=== PATIENT | female | born 1985 | race Caucasian/White ===

== ENCOUNTER 2020-12-27 14:51 | Outpatient (REF) | payer MEDICARE, MEDICAID, SELFPAY ==
[2020-12-27 16:02] LABS: Appearance Urine CLEAR; Color Urine YELLOW; Glucose Urine UA NEG (NEG); Leukocyte Esterase Urine NEG (NEG); Nitrite Urine NEG (NEG); PH 6.5 (5.0-8.0); Specific Gravity - Urine <= 1.005 (1.005-1.025); Urine Blood NEG (NEG); Urine Ketones NEG (NEG); Urine Protein NEG (NEG-TRACE)
[2020-12-27 16:15] LABS: Bacteria Urine TRACE /LPF; Squamous Epithelial Cell Urine 1+ /LPF
[2020-12-27 16:16] LABS: RBC Urine 0-2 /HPF (0); WBC Urine 0-2 /HPF (0-4)
[2020-12-27 16:43] LABS: Anion Gap 11 (12-20); Blood Urea Nitrogen 7 mg/dL (9-16); Calcium 8.8 mg/dL (8.4-10.2); Carbon Dioxide 19 mmol/L (22-29); Chloride 114 mmol/L (96-108); Estimated Glomerular Filt Rate > 60; Sodium 140 mmol/L (135-145)
[2020-12-28 09:42] LABS: Human Growth Hormone 0.2 ng/mL (< OR = 7.1)
== END 2020-12-27 14:52 | disposition home or self-care (01) ==
LOC: HO.LAB 14:51
PROVIDERS: Visit Provider Internal Medicine Nephrology
DX: R30.0 Dysuria (principal); N23 Unspecified renal colic
CPT/HCPCS: 36415; 80051; 81001; 82310; 82565; 83003; 84520

== ENCOUNTER 2021-02-06 14:48 | Emergency (ER) | payer MEDICARE, MEDICAID, SELFPAY ==
[2021-02-06 15:04] VITALS: BP 125/75; PULSE 76; RESP 18; TEMP 36.8; O2SAT 99; BMI 33.6
[2021-02-06 16:33] VITALS: BP 110/75; PULSE 71; RESP 15; TEMP 36.8; O2SAT 98
[2021-02-06] MEDS: SUMAtriptan succinate 6 MG/0.5 ML VIAL SUBCUT (18:05)
--- NOTE | 2021-02-06 18:07 | ED.HA ---
HPI - Headache General Chief Complaint: Headache Stated Complaint: headache Time Seen by Provider: 02/06/21 16:36 Source: patient Mode of arrival: ambulatory Limitations: no limitations History of Present Illness HPI Narrative: Patient history of lupus, pseudotumor cerebri, migraine headaches comes here for 3-4 days of headache which is localized on the top of the head feels slightly different than migraine and pseudotumor cerebri has light sensitivity but no nausea no vomiting headache does not increase on standing or stooping. No vision changes no fever no chills Related Data Previous Rx's Medication Instructions Recorded jbrzgbvgxq-ozdbhtaexgots-xtvmlxpb 1 cap PO Q6H PRN #20 cap 02/06/21 50 mg-300 mg-40 mg capsule (Fioricet) Allergies Allergy/AdvReac Type Severity Reaction Status Date / Time levofloxacin [From LEVAQUIN] Allergy Mild WEAKNESS Verified 02/06/21 15:03 moxifloxacin [From AVELOX] Allergy Mild WEAKNESS Verified 02/06/21 15:03 amoxicillin [AMOXICILLIN] Allergy Unknown RASH Verified 02/06/21 15:03 methylprednisolone Allergy Unknown HIVES Verified 02/06/21 15:03 [From SOLU-MEDROL] sulfamethoxazole Allergy Unknown hives Verified 02/06/21 15:03 Review of Systems Review of Systems: Yes all other systems are reviewed and are negative PMFSH Past Medical History Medical History Intracranial hypertension Migraines SLE (systemic lupus erythematosus) Social History Social History Advance Directives: No Advance Directives Information Provided: Yes Patient : No Physical Exam Vital Signs: Vital Signs: Last Vital Signs Temp 98.3 F 02/06/21 16:33 Pulse 71 02/06/21 16:33 Resp 15 02/06/21 16:33 BP 110/75 02/06/21 16:33 Pulse Ox 98 02/06/21 16:33 Body Mass Index 33.6 Appearance: Alert. Oriented X3. No acute distress. Eyes: PERRLA, , fundus: No papilledema ENT: Pharynx normal. Oral Mucosa moist no temporal artery tenderness no sinus tenderness Neck: Normal inspection. Neck supple. CVS: Normal heart rate and rhythm. Pulses normal. Respiratory: No respiratory distress. Equal air entry bilateral, no wheezing/rales/rhonchi Abdomen: Soft and nontender. Bowel sounds are present, no mass palpable, no CVA tenderness Skin: Skin warm and dry. Normal skin color. Normal skin turgor. Extremities: No lower extremity edema. No calf tenderness Neuro: Oriented X 3. No motor deficit. No sensory deficit.No cerebellar signs , cranial nerves II-XII intact MDM - Headache MDM Narrative Medical decision making narrative: Patient with nonspecific headache likely migraine fundus exam negative no signs of papilledema at this time patient felt better after Imitrex will discharge patient home on Fioricet Discharge Plan Discharge Clinical Impression: Migraine Qualifiers: Migraine type: without aura Status migrainosus presence: without status migrainosus Intractability: not intractable Qualified Code(s): G43.009 - Migraine without aura, not intractable, without status migrainosus Patient Disposition: Home, Self-Care Instructions: Migraine Headache (ED) Additional Instructions: Rest at home Take medication for headache as advised and follow up with your PCP Prescriptions: New zplaudjqoh-vgexjpwydhnzu-zyav [Fioricet] 50-300-40 mg capsule 1 cap PO Q6H PRN (Reason: headache) Qty: 20 RF: 0 Interventions: ED Discharge Assessment Last Done: 02/06/21 19:13 Discharge Date/Time: 02/06/21 19:14
--- NOTE | 2021-02-06 18:39 | PC.NURSE ---
Pt alert and oriented, vss. pt reports having a headache for approximately 3-4 days. pt has a history of migraines and also has Lupus. pt denies dizziness/sob. no abdominal pain, no chest pain.
[2021-02-06] MEDS: Butalb/Acetamin/Caff 50/325/40 TABLET 1 TAB PO (19:09)
== END 2021-02-06 19:14 | disposition home or self-care (01) ==
PROVIDERS: Emergency Provider Internal Medicine; PCP Internal Medicine Nephrology
DX: G43.009 Migraine without aura, not intractable, without status migrainosus (principal)
CPT/HCPCS: 96372; 99284; J3030

== ENCOUNTER 2021-02-19 13:59 | Emergency (ER) | payer MEDICARE, MEDICAID, SELFPAY ==
[2021-02-19 14:09] VITALS: BP 119/86; BP 124/84; PULSE 64; PULSE 66; RESP 18; TEMP 36.7; O2SAT 98; BMI 31.3
--- NOTE | 2021-02-19 14:28 | ECG_ITS ---
Test Reason : anxiety Blood Pressure : / mmHG Vent. Rate : 067 BPM Atrial Rate : 067 BPM P-R Int : 160 ms QRS Dur : 090 ms QT Int : 394 ms P-R-T Axes : 060 045 048 degrees QTc Int : 416 ms Sinus rhythm with Premature supraventricular complexes Low voltage QRS Borderline ECG When compared with ECG of 13-MAY-2019 15:41, Premature supraventricular complexes are now Present Referred By: Abraham De Los Santos Electronically Signed By:MYNOR THOMAS MD
--- NOTE | 2021-02-19 14:29 | ED.GENADULT ---
HPI - General Adult General Chief complaint: Anxiety Stated complaint: L ARM TINGLING,CHEST TIGHTNESS,CRISIS Time Seen by Provider: 02/19/21 14:26 Source: patient Mode of arrival: ambulatory Limitations: no limitations History of Present Illness HPI narrative: This is a 35 years old female presented to the emergency department complaining of anxiety, left arm tingling, she is also states that she is homeless she has no place to go Onset (ago): day(s) (2) Radiation: non-radiation Severity: moderate Pain Consistency: constant Related Data Previous Rx's Medication Instructions Recorded djpicpnedc-dihrwryzshtmu-xygmvblf 1 cap PO Q6H PRN #20 cap 02/06/21 50 mg-300 mg-40 mg capsule (Fioricet) Allergies Allergy/AdvReac Type Severity Reaction Status Date / Time levofloxacin [From LEVAQUIN] Allergy Mild WEAKNESS Verified 02/06/21 15:03 moxifloxacin [From AVELOX] Allergy Mild WEAKNESS Verified 02/06/21 15:03 amoxicillin [AMOXICILLIN] Allergy Unknown RASH Verified 02/06/21 15:03 methylprednisolone Allergy Unknown HIVES Verified 02/06/21 15:03 [From SOLU-MEDROL] sulfamethoxazole Allergy Unknown hives Verified 02/06/21 15:03 Review of Systems Review of Systems: Yes all other systems are reviewed and are negative Constitutional: Constitutional: Reports no additional constitutional complaints Cardiovascular: Cardiovascular: Reports no additional cardiovascular complaints, Denies dyspnea and Denies dyspnea on exertion Respiratory: Respiratory: Denies pain with cough, Denies dyspnea and Denies dyspnea on exertion PMFSH Past Medical History Attestation statement: The following information was validated with the patient. Medical History Intracranial hypertension Migraines SLE (systemic lupus erythematosus) Social History Social History Advance Directives: No Advance Directives Information Provided: No Physical Exam Vital Signs: Vital Signs: Last Vital Signs Temp 98.1 F 02/19/21 14:09 Pulse 64 02/19/21 14:09 Resp 18 02/19/21 14:09 BP 124/84 02/19/21 14:09 Pulse Ox 98 02/19/21 14:09 Body Mass Index 31.3 Const: General: cooperative, healthy appearing, comfortable, no acute distress, well developed and alert Nutritional Appearance: well nourished Orientation/consciousness: patient oriented x3 HENMT: Head: Yes normal to inspection Face and sinus: Yes normal facial exam Mouth: Normal oral and palatal mucosa present Neck: Neck: Yes normal visual inspection, Yes full ROM and Yes no lymphadenopathy Thyroid: Thyroid normal Chest: Chest palpation & inspection: normal inspection of the chest and normal palpation of entire chest wall Resp: Effort & Inspection: normal respiratory effort and able to speak in complete sentences Auscultation: clear to auscultation bilaterally Cardio: Jugular venous distension: no JVD Rate: regular rate Rhythm: regular rhythm GI: Inspection: Yes normal to inspection Palpation (GI): not firm, nontender, no guarding and not rigid Percussion: Yes normal to percussion Auscultation: normal bowel sounds Neuro: General: patient oriented x3 Course Reevaluation(s) Reevaluation #1: EKG wnl will consult crisis Reevaluation #2: seen by Care team pt will be d/c to the iving room ,she is not SI Medical Decision Making Lab Data Labs: Lab Results 02/19/21 02/19/21 02/19/21 Range/Units 15:22 15:22 15:22 Urine Color YELLOW Urine Appearance CLEAR Urine pH 6.5 (5.0-8.0) Ur Specific [place] 1.010 (1.005-1.025) Urine Protein NEG (NEG-TRACE) MG/DL Urine Glucose (UA) NEG (NEG) MG/DL Urine Ketones NEG (NEG) MG/DL Urine Blood NEG (NEG) Urine Nitrite NEG (NEG) Ur Leukocyte Esterase NEG (NEG) Urine RBC 0-2 (0) /HPF Urine WBC 0-2 (0-4) /HPF Ur Squamous Epith Cells TRACE /LPF Urine Bacteria NONE /LPF Urine Test NEGATIVE (NEGATIVE) Urine Opiates Screen Not Detected (Not Detect) Urine Fentanyl Screen Not Detected (Not Detect) Ur Barbiturates Screen Not Detected (Not Detect) Ur Phencyclidine Scrn Not Detected (Not Detect) Ur Amphetamines Screen Not Detected (Not Detect) U Benzodiazepines Scrn Not Detected (Not Detect) Urine Cocaine Screen Not Detected (Not Detect) U Marijuana (THC) Screen Not Detected (Not Detect) COVID-19 (CRISTIAN) (Negative) COVID-19 Clin Com 02/19/21 Range/Units 16:07 Urine Color Urine Appearance Urine pH (5.0-8.0) Ur Specific [place] (1.005-1.025) Urine Protein (NEG-TRACE) MG/DL Urine Glucose (UA) (NEG) MG/DL Urine Ketones (NEG) MG/DL Urine Blood (NEG) Urine Nitrite (NEG) Ur Leukocyte Esterase (NEG) Urine RBC (0) /HPF Urine WBC (0-4) /HPF Ur Squamous Epith Cells /LPF Urine Bacteria /LPF Urine Test (NEGATIVE) Urine Opiates Screen (Not Detect) Urine Fentanyl Screen (Not Detect) Ur Barbiturates Screen (Not Detect) Ur Phencyclidine Scrn (Not Detect) Ur Amphetamines Screen (Not Detect) U Benzodiazepines Scrn (Not Detect) Urine Cocaine Screen (Not Detect) U Marijuana (THC) Screen (Not Detect) COVID-19 (CRISTIAN) Negative (Negative) COVID-19 Clin Com See Note ECG Data Attestation: I personally reviewed and interpreted this ECG as follows: Prior ECG tracings: available for review Pacemaker model: NSR 67 no ischemic changes Discharge Plan Discharge Clinical Impression: Acute anxiety Patient Disposition: Home, Self-Care Instructions: Anxiety (ED) Prescriptions: No Action kedohlcapi-udubfkycyhvmv-csfv [Fioricet] 50-300-40 mg capsule 1 cap PO Q6H PRN (Reason: headache) Qty: 20 RF: 0 Referrals: Physician,None [Primary Care Provider] - 2 days
[2021-02-19 15:29] LABS: Appearance Urine CLEAR; Color Urine YELLOW; Glucose Urine UA NEG (NEG); Leukocyte Esterase Urine NEG (NEG); Nitrite Urine NEG (NEG); PH 6.5 (5.0-8.0); Urine Blood NEG (NEG); Urine Ketones NEG (NEG); Urine Protein NEG (NEG-TRACE)
[2021-02-19 15:32] LABS: UPreg QC Valid YES; Urine Pregnancy NEGATIVE (NEGATIVE)
[2021-02-19 15:37] LABS: RBC Urine 0-2 /HPF (0); Squamous Epithelial Cell Urine TRACE /LPF; WBC Urine 0-2 /HPF (0-4)
[2021-02-19 15:43] LABS: Amphetamine Screen Urine Not Detected (Not Detect); Barbiturates, Urine Not Detected (Not Detect); Benzodiazepines Screen Urine Not Detected (Not Detect); Cannabinoid Screen Urine Not Detected (Not Detect); Cocaine Screen Urine Not Detected (Not Detect); Fentanyl, urine Not Detected (Not Detect); Opiate Screen Urine Not Detected (Not Detect); Phencyclidine Screen Urine Not Detected (Not Detect)
[2021-02-19 16:30] LABS: COVID-19 Test Negative (Negative); IDNOW Serial# 08D9AD1C
--- NOTE | 2021-02-19 19:07 | MHC.CARE ---
CARE Team was consulted to meet with pt to screen pt for [facility] evaluation. Pt is alert and oriented x4. Pt is sitting on her bed in the pod, dressed in hospital attire. Pt is engaged and help seeking. Eye contact is intermittent. Speech is within normal limits. Mood is anxious with congruent affect. Pt denies AVH and does not appear to be responding to internal stimuli. Pt denies SI/HI/. Insight, judgment, impulse control are intact. Pt reports that she had been living with her mom until two days ago when her mom said that she could not stay with her anymore due to lease requirement. Pt requested resources to help her find stable housing. CARE Team spoke with [facility] and was informed that pt could come to stay at the Living Room overnight and that they would connect her with housing resources. Pt agreed to go to the Living Room via Lyft and was given the contact information for CARE Team. Plan is for pt to go to [facility] via Lyft so she can be connected with housing resources.
== END 2021-02-19 19:21 | disposition home or self-care (01) ==
PROVIDERS: Emergency Medicine; Emergency Provider Emergency Medicine
DX: F41.9 Anxiety disorder, unspecified (principal); Z20.822 Contact with and (suspected) exposure to COVID-19; Z59.02 Unsheltered homelessness
CPT/HCPCS: 36415; 80307; 81001; 81025; 87635; 93005; 99283; 99284

== ENCOUNTER 2021-03-21 14:00 | Emergency (ER) | payer MEDICARE, MEDICAID, SELFPAY ==
--- NOTE | 2021-03-21 14:03 | PC.NURSE ---
Addendum entered by Brien Gambino 03/21/21 14:09: PATIENT'S MOTHER FANNY PARIS [phone] Original Note: PATIENT'S MOTHER CALLS AT THIS TIME TO INFORM THAT SHE REQUESTS THE PATIENT GETS A PSYCH EVALUATION. SHE STATES THAT SHE IS AFRAID OF THE PATIENT AND THAT THEY HAVE A HISTORY OF MANIPULATION AND OTHER PSYCH BEHAVIORS.
[2021-03-21 14:42] VITALS: BP 138/57; PULSE 76; RESP 16; TEMP 36.6; O2SAT 98; BMI 31.3
[2021-03-21 15:14] LABS: Appearance Urine CLEAR; Color Urine YELLOW; Glucose Urine UA NEG (NEG); Leukocyte Esterase Urine NEG (NEG); Nitrite Urine NEG (NEG); Specific Gravity - Urine >= 1.030 (1.005-1.025); Urine Blood NEG (NEG); Urine Ketones NEG (NEG); Urine Protein NEG (NEG-TRACE)
[2021-03-21 15:23] LABS: Mucus Urine TRACE /LPF; Squamous Epithelial Cell Urine TRACE /LPF
[2021-03-21 15:24] LABS: Bacteria Urine TRACE /LPF; RBC Urine 0 /HPF (0); WBC Urine 0 /HPF (0-4)
[2021-03-21 17:49] LABS: IDNOW Serial# 9DD0AD1C
[2021-03-21 17:50] LABS: COVID-19 Test Negative (Negative)
--- NOTE | 2021-03-21 17:57 | ED_ITS ---
HPI - General Adult General Chief complaint: General Medical Stated complaint: BACK PAIN Time Seen by Provider: 03/21/21 17:21 Source: patient Mode of arrival: ambulatory Limitations: no limitations History of Present Illness HPI narrative: 35-year-old female with history of lupus, CKD II, anxiety presents to the ER with upper respiratory symptoms, low back pain and difficulty voiding. She also has headaches and body aches. She is fully vaccinated for COVID-19. She was recently tested for COVID and was negative. Her doctor recently gave her prescription for Z-Ramon for her productive cough with yellow phlegm. She has 1 more day of this left. She has ongoing cough although the phlegm has decreased. She reports increased nasal congestion difficulty breathing at night due to her nose being clogged. She has had no fever or chills. She has no shortness of breath or dyspnea on exertion but feels like she ?needs more oxygen. MD complaint: Nasal congestion, low back pain Onset (ago): day(s) (4) Location: head, face, chest and back Radiation: non-radiation Severity: moderate Quality: aching Pain Consistency: constant Relieving factors: medication Exacerbating factors: movement Associated symptoms: cough, headaches and malaise Treatments prior to arrival: none Related Data Previous Rx's Medication Instructions Recorded gaszspjvml-larkfiubkwqlk-oclkyvhe 1 cap PO Q6H PRN #20 cap 02/06/21 50 mg-300 mg-40 mg capsule (Fioricet) doxycycline monohydrate 100 mg 100 mg PO BID #20 cap 03/21/21 capsule fluticasone propionate 50 1 spray INTRANASAL BID #16 g 03/21/21 mcg/actuation nasal spray,suspension (Flonase Allergy Relief) Allergies Allergy/AdvReac Type Severity Reaction Status Date / Time levofloxacin [From LEVAQUIN] Allergy Mild WEAKNESS Verified 02/06/21 15:03 moxifloxacin [From AVELOX] Allergy Mild WEAKNESS Verified 02/06/21 15:03 amoxicillin [AMOXICILLIN] Allergy Unknown RASH Verified 02/06/21 15:03 methylprednisolone Allergy Unknown HIVES Verified 02/06/21 15:03 [From SOLU-MEDROL] sulfamethoxazole Allergy Unknown hives Verified 02/06/21 15:03 Review of Systems Review of Systems: Constitutional: No Fever, No Chills ENT/Mouth: No sore throat, No Rhinorrhea, No Swallowing Difficulty, +Nasal congestion Cardiovascular: No Chest Pain, No SOB, No Orthopnea, No Edema Respiratory: + Cough, + Sputum, No Wheezing, No dyspnea Gastrointestinal: No Nausea, No Vomiting, No Diarrhea, No abdominal Pain Genitourinary: No Dysuria, No Urinary Frequency, No Hematuria Musculoskeletal: No joint pain, + Myalgias Skin: No Skin Lesions, No rash Neuro: No Dizziness, + Headache Psych: + Anxiety/Panic, Heme/Lymph: No Lymphadenopathy PMFSH Past Medical History Medical History Intracranial hypertension Migraines SLE (systemic lupus erythematosus) Social History Social History Advance Directives: No Advance Directives Information Provided: Yes Patient : No Physical Exam Vital Signs: Vital Signs: Last Vital Signs Temp 98 F 03/21/21 14:42 Pulse 76 03/21/21 14:42 Resp 16 03/21/21 14:42 BP 138/57 L 03/21/21 14:42 Pulse Ox 98 03/21/21 14:42 BMI result Body Mass Index 31.3 Appearance: Alert. Oriented X3. No acute distress. Eyes: Pupils equal, round and reactive to light. ENT: Pharynx normal. Tonsils are normal without swelling or exudate. nasal discharge is yellow with erythematous and swollen turbinates Neck: Normal inspection. Neck supple. CVS: Normal heart rate and rhythm. Pulses normal. Respiratory: No respiratory distress. Breath sounds normal. Abdomen: Soft and nontender No CVA tenderness, obese. +BS x4 Skin: Skin warm and dry. Normal skin color. Normal skin turgor. No rashes. Extremities: No lower extremity edema. Neuro: Oriented X 3. Grossly normal, nonfocal Course Course Course Narrative: 35-year-old female with history of SLE, CKD 2, anxiety who presents to the ER with nasal congestion, productive cough, low back pain. Her urinalysis is negative for infection, no protein. Her lungs are clear with normal oxygen levels. She has no respiratory distress. She is negative for COVID-19. She is about to complete a course of azithromycin. Given her nasal congestion and concern for possible bronchitis or sinusitis, will add a course of doxycycline for treatment. Will give intranasal steroid as well. She will follow-up with her primary care doctor early next week. She is stable for discharge home with supportive care in the above treatment. Patient agrees with plan. Medical Decision Making Lab Data Labs: Lab Results 03/21/21 03/21/21 Range/Units 15:03 17:27 Urine Color YELLOW Urine Appearance CLEAR Urine pH 6.0 (5.0-8.0) Ur Specific [place] >= 1.030 H (1.005-1.025) Urine Protein NEG (NEG-TRACE) MG/DL Urine Glucose (UA) NEG (NEG) MG/DL Urine Ketones NEG (NEG) MG/DL Urine Blood NEG (NEG) Urine Nitrite NEG (NEG) Ur Leukocyte Esterase NEG (NEG) Urine RBC 0 (0) /HPF Urine WBC 0 (0-4) /HPF Ur Squamous Epith Cells TRACE /LPF Urine Bacteria TRACE /LPF Urine Mucus TRACE /LPF COVID-19 (CRISTIAN) Negative (Negative) COVID-19 Clin Com See Note Critical Care Time Critical Care Time Critical Care Time: No Discharge Plan Discharge Clinical Impression: Bronchitis Patient Disposition: Home, Self-Care Instructions: Acute Bronchitis (ED) Additional Instructions: Your urine test showed no signs of infection You were negative for COVID-19 Complete your last dose of azithromycin. In addition start taking doxycycline which is another antibiotic to help treat possible sinusitis and bronchitis. Also use the prescribed intranasal steroid to help with congestion. Recommend ibxr-wtp-nacofyl Mucinex to help break up any phlegm. Increase her oral hydration, make sure to drink plenty of water. Follow-up with your doctor early next week. If you develop new or worsening symptoms call 911 or come back to the ER for further evaluation. Prescriptions: New doxycycline monohydrate 100 mg capsule 100 mg PO BID Qty: 20 RF: 0 fluticasone propionate [Flonase Allergy Relief] 50 mcg/actuation spray,suspension 1 spray intranasal BID Qty: 16 RF: 0 No Action llahppeigg-jpmmkutkfcfnm-cezo [Fioricet] 50-300-40 mg capsule 1 cap PO Q6H PRN (Reason: headache) Qty: 20 RF: 0
== END 2021-03-21 18:47 | disposition home or self-care (01) ==
PROVIDERS: Physician Assistant; Emergency Provider Emergency Medicine Emergency Medical Services; PCP Internal Medicine Nephrology
DX: J40 Bronchitis, not specified as acute or chronic (principal); R51.9 Headache, unspecified; M79.10 Myalgia, unspecified site; R05.9 Cough, unspecified; Z20.822 Contact with and (suspected) exposure to COVID-19; Z79.899 Other long term (current) drug therapy
CPT/HCPCS: 36415; 81001; 87635; 99283; 99284

== ENCOUNTER 2021-09-02 14:10 | Emergency (ER) | payer OTHER, MEDICAID, SELFPAY ==
--- NOTE | 2021-09-02 14:13 | ECG_ITS ---
Test Reason : CHEST PAIN Blood Pressure : / mmHG Vent. Rate : 095 BPM Atrial Rate : 095 BPM P-R Int : 158 ms QRS Dur : 086 ms QT Int : 342 ms P-R-T Axes : 057 013 034 degrees QTc Int : 429 ms Normal sinus rhythm Normal ECG When compared with ECG of 19-FEB-2021 14:36, Premature supraventricular complexes are no longer Present Referred By: Generic ED Physician Electronically Signed By:Luis E Mast
[2021-09-02 15:07] VITALS: BP 140/99; PULSE 100; RESP 18; TEMP 36.9; O2SAT 98; BMI 53.6
[2021-09-02 15:23] LABS: MANUAL DIFF FLAG NO
[2021-09-02 15:24] LABS: Basophils Absolute Auto 0.1 X10*3/uL (0.0-0.2); Basophils Percent Auto 0.7 % (0-2); Eosinophils Absolute Auto 0.2 X10*3/uL (0.0-0.4); Eosinophils Percent Auto 1.5 % (0-4); Hematocrit 41.3 % (37.0-47.0); Hemoglobin 13.4 g/dl (12.0-16.0); Imm Gran Abs Auto 0.04 X10*3/uL (0.00-0.03); Imm Gran Pct Auto 0.4 % (0.0-0.4); Lymphocytes Percent Auto 9.6 % (20-40); Mean Corpuscular HGB Conc 32.4 g/dl (31.0-35.0); Mean Corpuscular Volume 86.2 fL (80.0-98.0); Mean Platelet Volume 8.7 fL (9.4-12.3); Monocytes Absolute Auto 1.1 X10*3/uL (0.1-1.2); Neutrophils Absolute Auto 8.1 x10*3/uL (2.0-8.3); Neutrophils Percent Auto 77.8 % (45-73); Platelet Count 258 X10*3/uL (160-400); Red Blood Count 4.79 X10*6/uL (4.20-5.50); Red Cell Distribution Width 12.9 % (11.0-16.0); White Blood Count 10.5 X10*3/uL (4.8-10.8)
[2021-09-02 15:39] LABS: Anion Gap 10 (12-20); Blood Urea Nitrogen 11 mg/dL (9-16); Calcium 9.4 mg/dL (8.4-10.2); Carbon Dioxide 26 mmol/L (22-29); Chloride 108 mmol/L (96-108); Creatinine Clr Calc Pharmacy 108.5; Estimated Glomerular Filt Rate 55; Glucose Random 77 mg/dL (60-115); Potassium 4.4 mmol/L (3.3-5.1); Sodium 140 mmol/L (135-145)
[2021-09-02 15:46] LABS: Troponin-I High Sensitivity < 3.5 ng/L (<3.5-17.0)
== END 2021-09-02 17:32 | disposition left against medical advice (07) ==
PROVIDERS: Emergency Provider Emergency Medicine; PCP Nurse Practitioner Adult Health
DX: R07.9 Chest pain, unspecified (principal); R06.02 Shortness of breath; M79.89 Other specified soft tissue disorders
CPT/HCPCS: 36415; 80048; 84484; 85025; 93005; 99281; 99283

== ENCOUNTER → 2022-04-01 14:05 | Outpatient (BNVA) | payer OTHER, SELFPAY | PROVIDERS: PCP Nurse Practitioner Adult Health; Referring Provider Nurse Practitioner Adult Health; Visit Provider Nurse Practitioner Family | DX: R07.89 Other chest pain (principal); R00.2 Palpitations; E66.01 Morbid (severe) obesity due to excess calories; Z68.43 Body mass index [BMI] 50.0-59.9, adult; Z82.49 Family history of ischemic heart disease and other diseases of the circulatory system | CPT/HCPCS: 99212 ==

== ENCOUNTER → 2022-05-04 07:38 | Outpatient (REF) | payer OTHER, SELFPAY ==
--- NOTE | ~2022-05-04 | NM_ITS ---
Myocardial perfusion study Indication: Chest pain to evaluate for myocardial ischemia Technique: The patient was brought in for a Lexiscan perfusion study on 05/04/2022. Patient performed low-level exercise and was injected 0.4 mg of Lexiscan intravenously. Within a minute of injection, 45 mCi of sestamibi was given intravenously. Images were obtained using the SPECT gamma camera interlaced with the gating device. Images were obtained in supine position. Resting perfusion study was performed on 05/07/2022. Patient was administered 45 mCi of sestamibi intravenously at rest. Images were then obtained in supine position. Images obtained with and without CT attenuation. Total DLP 198 mGy-cm. Images were processed with the software and compared side to side in short axis, horizontal long axis and vertical long axis views. Findings: The stress perfusion study showed non attenuated images show mildly reduced uptake in the anterior wall and moderately reduced uptake in the distal anterior wall as well as apex and mildly reduced uptake in the distal anterolateral wall of the LV myocardium. Remainder of the LV myocardium is normally perfused. Attenuation corrected images show improved uptake in the inferior wall but persistent moderately reduced uptake in the apex and distal anterolateral as well as distal anterior wall of the LV myocardium.. The gated study shows normal LV systolic function with calculated LVEF of 72%. LV cavity is normal in size. The gated study shows normal systolic wall thickening and contraction of segments. Resting study shows nontender images show improved uptake in the anterior as well as apex and distal anterolateral wall of the LV myocardium. Attenuation corrected images also showed improved uptake in the distal anterior, distal anterolateral and apical wall of the LV outflow mildly intensity. Gating at rest reveals normal systolic wall motion with ejection fraction at greater than 60%. The findings are consistent with reversible defect of the distal anterior, distal anterior and apical wall especially on non attenuated images suggestive of ischemia in the mid to distal LAD territory.. NM/NM cardiolite stress test Impression: 1. Myocardial perfusion imaging study shows mid to distal LAD territory ischemia 2. Gated LVEF is 72% 3. Transient ischemic dilatation not present EKG is nondiagnostic for ischemia
--- NOTE | 2022-05-04 07:55 | HM_ITS ---
Conclusion: 1. Patient was monitored for total period of 2 days and 21 hours 2. Baseline was normal sinus rhythm with average heart rate of 80 beats per minute 3. No significant pauses or bradycardia noted 4. Rare PACs noted 5. Patient reported 3 comes without any obvious symptoms correlating with sinus rhythm MTDD
--- NOTE | 2022-05-04 07:55 | CA_ITS ---
Acquisition Time: 2022-05-04 08:24:25 Total Exercise Time: 00:02:00 Test Indications: CP, PALPITATIONS, FM HX.HEART CA Medications: Protocol: LEXISCAN Max HR: 134 BPM 73% of Pred: 183 BPM Max BP: 104/060 mmHG Max Work Load: 1.0 METS Pharmacological stress test with Lexiscan injection, while sitting and kicking her legs, without anginal symptoms, without arrythmia, with normotensive response to injection, without EKG changes meeting criteria for ischemia. In recovery she reported mild nausea and was treated with Aminophylline 75mg IVP to reverse Lexiscan with resolution of symptom. Nuclear images pending. Test reviewed with Dr Palencia. Referred By: Kandi Nichols Overread By: KANDI NICHOLS
== END ==
LOC: HO.CARD 07:38
PROVIDERS: Visit Provider Nurse Practitioner Family
DX: R07.89 Other chest pain (principal); R00.2 Palpitations; E66.01 Morbid (severe) obesity due to excess calories; Z82.49 Family history of ischemic heart disease and other diseases of the circulatory system
CPT/HCPCS: 78452; 93017; 93242; A9500; J0280; J2785

== ENCOUNTER 2022-05-13 09:24 | Outpatient (REF) | payer OTHER, SELFPAY ==
[2022-05-13 10:25] LABS: Anion Gap 13 (12-20); Blood Urea Nitrogen 13 mg/dL (9-16); Calcium 8.9 mg/dL (8.4-10.2); Carbon Dioxide 17 mmol/L (22-29); Chloride 114 mmol/L (96-108); Estimated Glomerular Filt Rate > 60; Glucose Random 81 mg/dL (60-115); Potassium 3.9 mmol/L (3.3-5.1); Sodium 140 mmol/L (135-145)
== END 2022-05-13 09:25 | disposition home or self-care (01) ==
LOC: HO.LAB 09:24
PROVIDERS: Visit Provider Nurse Practitioner Family
DX: R07.89 Other chest pain (principal); R93.1 Abnormal findings on diagnostic imaging of heart and coronary circulation
CPT/HCPCS: 36415; 80048

== ENCOUNTER → 2022-05-20 12:39 | Outpatient (BNVA) | payer OTHER, SELFPAY | PROVIDERS: PCP Nurse Practitioner Adult Health; Visit Provider Nurse Practitioner Family | DX: R07.89 Other chest pain (principal); R00.2 Palpitations; E66.01 Morbid (severe) obesity due to excess calories; Z82.49 Family history of ischemic heart disease and other diseases of the circulatory system | CPT/HCPCS: 99212 ==

== ENCOUNTER 2023-03-02 12:29 | Outpatient (AMB) | payer OTHER, SELFPAY ==
[2023-03-02 13:02] VITALS: BP 120/62; PULSE 74; BMI 46.5
--- NOTE | 2023-03-02 13:02 | MHC.OFFVIS ---
Intake Vital Signs 03/02/23 13:02 Height 5 ft 7 in Weight 297 lb 2.93 oz BMI 46.5 BP 120/62 Blood Pressure Location Lt brachial Position Sitting Pulse 74 Intake Visit Reasons: 8 mth f/u Research Statistician Required: No Allergies levofloxacin [From LEVAQUIN] Allergy (Mild, Verified 03/02/23 13:04) WEAKNESS moxifloxacin [From AVELOX] Allergy (Mild, Verified 03/02/23 13:04) WEAKNESS amoxicillin [AMOXICILLIN] Allergy (Unknown, Verified 03/02/23 13:04) RASH methylprednisolone [From SOLU-MEDROL] Allergy (Unknown, Verified 03/02/23 13:04) HIVES sulfamethoxazole Allergy (Unknown, Verified 03/02/23 13:04) hives Medication List - Last Reconciled 03/02/23 by DIMITRIOS Leyva albuterol sulfate 90 mcg/actuation (Ventolin HFA) inhalation apixaban (Eliquis) 5 mg PO BID azathioprine 100 mg PO DAILY biotin 10,000 mcg PO DAILY cetirizine (Zyrtec) 10 mg PO DAILY PRN cholecalciferol (vitamin D3) (Vitamin D3) 125 mcg PO DAILY clonidine HCl 0.1 mg PO BID coenzyme Q10 (Co Q-10) 200 mg PO DAILY cyanocobalamin (vitamin B-12) (Vitamin B-12) 1,000 mcg PO DAILY fluticasone propionate 50 mcg/actuation sprays intranasal levothyroxine 137 mcg PO DAILY meloxicam 15 mg PO DAILY bdifhzsvuuqs-fels-adncv acid 18-400 mg-mcg (Spectravite Adult) tabs PO omeprazole 40 mg PO DAILY prednisone 10 mg PO DAILY rizatriptan mg PO tramadol 50 mg PO BID PRN HPI 8 mth f/u HPI Details Luzma is a 37-year-old female with past medical history of obesity, family history of early CAD who has been evaluated for heart palpitations and chest pressure who now presents for follow up. Today she states that she was in the [facility] emergency room last month with chest discomfort and heart palpitations. She tells me there was no significant findings. Her symptoms resolved without treatment. She continues to get palpitations where her heart feels like it is going fast. No lightheadedness presyncope, syncope, falls. She has not been experiencing chest discomfort like she previously reported. When she went to the ER she had a pain on her left chest which radiated down to her left abdomen. She tells me they did do a CT scan of her abdomen and that everything was okay. No concerning shortness of breath, PND, orthopnea or edema. She tells me she has been walking more recently. Her weight is down 65 lb since her last visit March 2022. [facility] Medical History Intracranial hypertension Migraines SLE (systemic lupus erythematosus) Surgical History History of root canal procedure H/O cervical polypectomy Family History Father Lupus Congestive heart failure (CHF) Mother Hypertension Alcohol intake: never Patient Tobacco Use Status: Never used Tobacco Review of Systems Const All systems reviewed & are unremarkable except as noted in HPI and below ENT Denies dizziness Card Details: palpitation Denies chest pain, Denies chest pain at rest, Denies chest pain with activity, Denies rapid heart rate, Denies pedal edema, Denies edema, Denies leg edema, Denies lightheadedness, Denies palpitations, Denies dyspnea, Denies dyspnea on exertion and Denies orthopnea Resp Denies cough, Denies dyspnea and Denies dyspnea on exertion GI Details: discomfort right abdomen, improving Denies hematochezia and Denies change in stool character Musc Denies abnormal gait, Denies limited range of motion, Denies muscle cramps, Denies muscle weakness, Denies numbness, Denies radiating pain into limb, Denies stiffness and Denies tingling Neuro Denies abnormal gait, Denies dizziness, Denies numbness and Denies tingling Endo Denies palpitations Physical Exam Vital Signs: Last Vital Signs BP 120/62 03/02/23 13:02 BMI result Body Mass Index 46.5 Const Other: Morbidly obese General: cooperative, comfortable and no acute distress Orientation/consciousness: patient oriented x3 HEENT Head: Yes normal to inspection Neck Neck: Yes normal visual inspection Resp Effort & Inspection: normal respiratory effort Auscultation: clear to auscultation bilaterally, no crackles, no rales, no rhonchi and no wheezes Cardio Jugular venous distension: no JVD Rate: regular rate Rhythm: regular rhythm Heart sounds: S1 normal heart sound present, S2 normal heart sound present, no gallops, no murmurs and no rubs Peripheral pulses: Peripheral pulses 2+ throughout Neuro General: patient oriented x3 Extrem General: Yes normal to inspection, No no pedal edema and No calf tenderness Psych Appearance: grossly normal Mental Status: mental status grossly normal Speech and movement: Normal speech and movement present Office Procedures EKG Details: Today, read by me, SR, no acute ST/ T wave abn, rate 74, QTc 401ms [id number], Complete Assessment & Plan Assessment & Plan (1) Chest pressure: Code(s): R07.89 - Other chest pain Plan: Prior reports of continual chest pressure in anterior chest that went to her back and was worse with activity. She has cardiac risk factors of morbid obesity, family history of early CAD. She expressed much concern over her heart as her father had fatal ME age 34. Unable to exercise on treadmill for an exercise stress test due to obesity. She underwent a pharmacological nuclear stress test on 05/04/22 showing mid to distal LAD ischemia, EF 72%. CTA of the coronary arteries done on 06/03/22 showed normal coronaries, Limited exam of branch vessels. Today she reports that her prior chest discomfort has fully resolved. She was recently seen in the [facility] emergency room for atypical sounding chest discomfort. She verbally tells me they told her everything was okay. No acute findings. Will work on getting those ER records for review. Currently no report of anginal sounding symptoms. With the CTA, I was able to offer her reassurance that her chest discomfort symptoms are most likely noncardiac. Cardiology follow-up will be as needed. (2) Family history of early CAD: Code(s): Z82.49 - Family history of ischemic heart disease and other diseases of the circulatory system (3) Palpitations: Code(s): R00.2 - Palpitations Plan: Reports of heart palpitations, like her heart is going fast at times. She was concerned about AFib. Holter monitor done on 05/04/2022 for 3 days shows sinus rhythm with rare PACs, average heart rate 80, no AFib. EKG done today showing normal sinus rhythm. She continues to report some fast heartbeats at times. She was recently seen in the emergency room for symptoms and tells me that everything turned out normal. (4) Morbid obesity: Code(s): E66.01 - Morbid (severe) obesity due to excess calories Plan: Weight loss of 65 lb since her last visit with us. She tells me she has been walking more. Encouraged to increase her physical activity. Applauded on weight loss. Coding Level of Care Code Est Pt Level 3 (08801) Diagnoses Chest pressure R07.89 Family history of early CAD Z82.49 Palpitations R00.2 Morbid obesity E66.01 CPT Codes EKG - CPT: 95328-[id number], Complete ([id number]) Time Spent (min) 24
== END 2023-03-02 13:30 | disposition home or self-care (01) ==
PROVIDERS: Visit Provider Nurse Practitioner Family
DX: R07.89 Other chest pain (principal); Z82.49 Family history of ischemic heart disease and other diseases of the circulatory system; R00.2 Palpitations; E66.01 Morbid (severe) obesity due to excess calories
CPT/HCPCS: 93010; 99213

== ENCOUNTER → 2023-03-02 12:29 | Outpatient (BNVA) | payer OTHER, SELFPAY | PROVIDERS: Visit Provider Nurse Practitioner Family | DX: R07.9 Chest pain, unspecified (principal); R00.2 Palpitations; E66.01 Morbid (severe) obesity due to excess calories; Z68.42 Body mass index [BMI] 45.0-49.9, adult; Z82.49 Family history of ischemic heart disease and other diseases of the circulatory system | CPT/HCPCS: 93005; 99212 ==